=== PATIENT | male | born 1965 | race Caucasian/White ===

== ENCOUNTER 2022-06-07 18:52 | Inpatient (IN) | payer OTHER ==
[2022-06-07 18:59] VITALS: BMI 30.9
[2022-06-07] MEDS ORDERED: diazePAM CARPU-JECT 10 MG/2 ML DISP.SYRIN IVPUSH ONE ×3 (19:13→20:13)
[2022-06-07] MEDS ORDERED: SODIUM CHLORIDE 0.9% 500 ML INFUS.BAG IV ONE ×2 (19:15→20:18)
[2022-06-07] MEDS ORDERED: PANTOPRAZOLE SODIUM 40 MG VIAL IVPUSH ONE (19:18)
[2022-06-07] MEDS ORDERED: PANTOPRAZOLE SODIUM 40 MG VIAL ONE (19:28)
[2022-06-07] MEDS ORDERED: diazePAM CARPU-JECT 10 MG/2 ML DISP.SYRIN ONE ×3 (19:28→20:17)
[2022-06-07 19:54] LABS: BASO % 0.3 % (0-2.0); EOS % 0.2 % (0-4.5); HEMATOCRIT 39.8 % (35.4-49); HEMOGLOBIN 14.1 GM/dL (11.7-16.9); LYMPH % 21.1 % (8-40); MCH 30.4 pg (25.7-33.7); MCHC 35.4 g/dl (32.0-35.9); MEAN CELL VOLUME 85.8 fl (80-96); MEAN PLT VOLUME 7.3 fl (7.5-11.1); MONO % 9.7 % (3.8-10.2); NEUT % 68.7 % (42.8-82.8); PLATELET COUNT 134 10^3/uL (134-434); RBC 4.64 M/mm3 (4.00-5.60); RDW 14.3 % (11.9-15.9); WHITE BLOOD COUNT 9.4 K/mm3 (4.0-10.0)
[2022-06-07 20:08] LABS: INR 1.09 (0.83-1.09); PROTHROMBIN TIME (PATIENT) 12.6 SEC (9.7-13.0)
[2022-06-07] MEDS ORDERED: FOLIC ACID 1 MG TABLET (FP) PO ONE (20:14)
[2022-06-07] MEDS ORDERED: MULTIVITAMINS (DAILY MVI) TABLET (FP) PO ONE (20:14)
[2022-06-07] MEDS ORDERED: ACETAMINOPHEN 1000 MG/100 ML BAG IVPB ONE (20:14)
[2022-06-07] MEDS ORDERED: THIAMINE HCL 100 MG TABLET (FP) PO ONE (20:14)
[2022-06-07 20:26] LABS: CHLORIDE 91 mmol/L (98-107); SODIUM 134 mmol/L (136-145)
[2022-06-07 20:27] LABS: CALCIUM 8.3 mg/dL (8.5-10.1)
[2022-06-07 20:29] LABS: BLOOD UREA NITROGEN 9.3 mg/dL (7-18); CO2 23 mmol/L (21-32); GLUCOSE,RANDOM 121 mg/dL (74-106)
[2022-06-07 20:30] LABS: LIPASE 389 U/L (73-393)
[2022-06-07 20:32] LABS: CREATININE 0.8 mg/dL (0.55-1.3); SGOT/AST 112 U/L (15-37); SGPT/ALT 97 U/L (13-61)
[2022-06-07 20:33] LABS: BILIRUBIN,TOTAL 1.9 mg/dL (0.2-1); TOT PROT 7.9 g/dl (6.4-8.2)
[2022-06-07 20:35] LABS: ALK PHOS 131 U/L (45-117)
[2022-06-07 20:46] LABS: ANION GAP 20 MMOL/L (8-16); MAGNESIUM 1.4 mg/dL (1.8-2.4)
[2022-06-07] MEDS ORDERED: POTASSIUM CHLORIDE TABS 20 MEQ TABLET.ER (FP) PO ONE ×2 (20:51→21:23)
[2022-06-07] MEDS ORDERED: THIAMINE HCL 100 MG TABLET (FP) ONE (21:23)
[2022-06-07] MEDS ORDERED: MAGNESIUM SULFATE IN WATER 2 GM/50 ML IVPB IVPB ONE (21:24)
[2022-06-07] MEDS ORDERED: FOLIC ACID 1 MG TABLET (FP) ONE (21:24)
[2022-06-07] MEDS ORDERED: MULTIVITAMINS (DAILY MVI) TABLET (FP) ONE (21:24)
[2022-06-07] MEDS ORDERED: FOLIC ACID INJECTION - 1 MG, THIAMINE HCL 100 MG, MULTIVIT INJECTION ADULT 10 ML in SOD... IVPB ONE (22:30)
[2022-06-07] MEDS ORDERED: KCL 10 MEQ IVPB 10 MEQ/100 ML INFUS.BAG IVPB ONE (22:34)
[2022-06-07 22:39] LABS: GAMMA GLUTAMYL TRANSPEPTIDASE 175 U/L (5-85)
[2022-06-07 22:42] LABS: BILIRUBIN,DIRECT 0.5 mg/dL (0.0-0.2)
[2022-06-07] MEDS ORDERED: LORazepam 1 MG TABLET PO PRN (22:44)
[2022-06-07] MEDS: KCL 10 MEQ IVPB 10 MEQ/100 ML INFUS.BAG IVPB SCH ×2 (22:44→23:45)
[2022-06-07] MEDS ORDERED: LORazepam 2 MG/ML SDV VIAL IVPUSH ONE (22:44)
[2022-06-07 23:14] LABS: URINE APPEARANCE CLEAR; URINE BILIRUBIN NEGATIVE (NEGATIVE); URINE COLOR YELLOW; URINE GLUCOSE (UA) NEGATIVE (NEGATIVE); URINE KETONE 2+ (NEGATIVE); URINE LEUK ESTERASE NEGATIVE (NEGATIVE); URINE NITRITE NEGATIVE (NEGATIVE); URINE PROTEIN TRACE (NEGATIVE)
[2022-06-07 23:31] LABS: URINE BENZODIAZEPINES NEGATIVE (NEGATIVE)
[2022-06-07 23:32] LABS: OPIATES, URI NEGATIVE (NEGATIVE); PHENCYCLIDINE,URINE NEGATIVE (NEGATIVE); URINE BARBITURATES NEGATIVE (NEGATIVE)
[2022-06-07 23:38] LABS: CHLORIDE 98 mmol/L (98-107); SODIUM 134 mmol/L (136-145)
[2022-06-07 23:39] LABS: CALCIUM 7.5 mg/dL (8.5-10.1)
[2022-06-07 23:40] LABS: BLOOD UREA NITROGEN 8.3 mg/dL (7-18); CO2 28 mmol/L (21-32); GLUCOSE,RANDOM 107 mg/dL (74-106); MAGNESIUM 2.3 mg/dL (1.8-2.4)
[2022-06-07 23:43] LABS: CREATININE 0.7 mg/dL (0.55-1.3)
[2022-06-07] MEDS: LORazepam 1 MG TABLET PO SCH (23:45)
[2022-06-07 23:51] LABS: ANION GAP 7 MMOL/L (8-16); COCAINE, UR NEGATIVE (NEGATIVE); METHADONE, UR NEGATIVE (NEGATIVE); URINE AMPHETAMINES NEGATIVE (NEGATIVE)
[2022-06-08] MEDS ORDERED: POTASSIUM PHOSPHATE 30 MM in DEXTROSE 5%-WATER - 500 ML IVPB ONE (00:27)
[2022-06-08] MEDS ORDERED: TRIMETHOBENZAMIDE HCL 200MG/2ML INJ IM PRN (00:56)
[2022-06-08] MEDS: KCL 10 MEQ IVPB 10 MEQ/100 ML INFUS.BAG IVPB SCH ×4 (01:28→05:18)
[2022-06-08] MEDS ORDERED: CALCIUM GLUC IN NACL, ISO-OSM 1 GM/50 ML BAG IVPB ONE (01:29)
[2022-06-08] MEDS: LORazepam 1 MG TABLET PO SCH ×4 (05:18→22:21)
[2022-06-08 08:32] LABS: BASO % 0.3 % (0-2.0); EOS % 1.6 % (0-4.5); HEMATOCRIT 34.9 % (35.4-49); HEMOGLOBIN 12.1 GM/dL (11.7-16.9); LYMPH % 16.4 % (8-40); MCH 30.3 pg (25.7-33.7); MCHC 34.7 g/dl (32.0-35.9); MEAN CELL VOLUME 87.5 fl (80-96); MEAN PLT VOLUME 7.6 fl (7.5-11.1); MONO % 7.4 % (3.8-10.2); NEUT % 74.3 % (42.8-82.8); PLATELET COUNT 108 10^3/uL (134-434); RBC 3.99 M/mm3 (4.00-5.60); RDW 14.3 % (11.9-15.9); WHITE BLOOD COUNT 6.6 K/mm3 (4.0-10.0)
[2022-06-08] MEDS ORDERED: cloNIDine HCL 0.1 MG TABLET PO ONE (08:50)
[2022-06-08 08:57] LABS: BILIRUBIN,TOTAL 1.9 mg/dL (0.2-1); CALCIUM 7.7 mg/dL (8.5-10.1); TOT PROT 6.3 g/dl (6.4-8.2)
[2022-06-08 08:58] LABS: BLOOD UREA NITROGEN 7.4 mg/dL (7-18); CREATININE 0.7 mg/dL (0.55-1.3); MAGNESIUM 2.2 mg/dL (1.8-2.4)
[2022-06-08 09:58] LABS: ALBUMIN 3.2 g/dl (3.4-5.0)
[2022-06-08] MEDS: PANTOPRAZOLE 40 MG TABLET PO SCH ×2 (10:20→22:21)
[2022-06-08] MEDS: FOLIC ACID 1 MG TABLET (FP) PO SCH (10:20)
[2022-06-08] MEDS: LEVOTHYROXINE NA 75 MCG TABLET (FP) PO SCH (10:20)
[2022-06-08] MEDS: THIAMINE HCL 100 MG TABLET (FP) PO SCH (10:20)
[2022-06-08] MEDS ORDERED: LORazepam 2 MG TABLET PO PRN (10:26)
[2022-06-08] MEDS ORDERED: LORazepam 1 MG TABLET PO PRN (10:32)
[2022-06-08] MEDS: SODIUM CHLORIDE 1,000 ML IV SCH (11:17)
[2022-06-08] MEDS: MULTIVITAMINS (DAILY MVI) TABLET (FP) PO SCH (13:11)
[2022-06-08] MEDS: FAMOTIDINE 20 MG TABLET PO SCH (13:11)
[2022-06-08] MEDS: METOPROLOL TARTRATE 25 MG TABLET (FP) PO SCH ×2 (13:11→22:20)
[2022-06-08 18:50] LABS: URINE APPEARANCE TURBID; URINE BILIRUBIN NEGATIVE (NEGATIVE); URINE COLOR YELLOW; URINE GLUCOSE (UA) NEGATIVE (NEGATIVE); URINE KETONE NEGATIVE (NEGATIVE); URINE LEUK ESTERASE NEGATIVE (NEGATIVE); URINE NITRITE NEGATIVE (NEGATIVE); URINE PROTEIN TRACE (NEGATIVE)
[2022-06-09] MEDS: LORazepam 1 MG TABLET PO SCH ×4 (05:38→22:04)
[2022-06-09] MEDS: LEVOTHYROXINE NA 75 MCG TABLET (FP) PO SCH (10:32)
[2022-06-09] MEDS: FAMOTIDINE 20 MG TABLET PO SCH (10:32)
[2022-06-09] MEDS: FOLIC ACID 1 MG TABLET (FP) PO SCH (10:32)
[2022-06-09] MEDS: METOPROLOL TARTRATE 25 MG TABLET (FP) PO SCH ×2 (10:32→22:04)
[2022-06-09] MEDS: PANTOPRAZOLE 40 MG TABLET PO SCH ×2 (10:32→22:04)
[2022-06-09] MEDS: MULTIVITAMINS (DAILY MVI) TABLET (FP) PO SCH (10:32)
[2022-06-09] MEDS: THIAMINE HCL 100 MG TABLET (FP) PO SCH (10:32)
[2022-06-09] MEDS: SODIUM CHLORIDE 1,000 ML IV SCH (10:33)
[2022-06-09 17:06] LABS: CALCIUM 8.6 mg/dL (8.5-10.1)
[2022-06-09 17:06] LABS: BLOOD UREA NITROGEN 10.9 mg/dL (7-18); CALCIUM 8.4 mg/dL (8.5-10.1); MAGNESIUM 1.8 mg/dL (1.8-2.4)
[2022-06-09 17:10] LABS: CREATININE 0.9 mg/dL (0.55-1.3)
[2022-06-09 17:11] LABS: CREATININE 0.8 mg/dL (0.55-1.3)
[2022-06-09] MEDS: KCL 10 MEQ IVPB 10 MEQ/100 ML INFUS.BAG IVPB SCH ×3 (19:38→22:05)
[2022-06-10] MEDS ORDERED: LORazepam 0.5 MG TABLET PO PRN
[2022-06-10] MEDS: LORazepam 0.5 MG TABLET PO SCH ×4 (04:48→22:10)
[2022-06-10 07:16] LABS: HEMATOCRIT 34.4 % (35.4-49); HEMOGLOBIN 11.9 GM/dL (11.7-16.9); MCH 30.8 pg (25.7-33.7); MCHC 34.6 g/dl (32.0-35.9); MEAN CELL VOLUME 88.8 fl (80-96); MEAN PLT VOLUME 7.7 fl (7.5-11.1); PLATELET COUNT 123 10^3/uL (134-434); RBC 3.88 M/mm3 (4.00-5.60); RDW 14.8 % (11.9-15.9); WHITE BLOOD COUNT 7.2 K/mm3 (4.0-10.0)
[2022-06-10 09:26] LABS: ALBUMIN 3.2 g/dl (3.4-5.0); BLOOD UREA NITROGEN 11.8 mg/dL (7-18); CALCIUM 8.4 mg/dL (8.5-10.1)
[2022-06-10 09:28] LABS: MAGNESIUM 1.9 mg/dL (1.8-2.4)
[2022-06-10 09:31] LABS: CREATININE 0.7 mg/dL (0.55-1.3); PHOSPHOROUS 4.2 mg/dL (2.5-4.9)
[2022-06-10 09:32] LABS: TOT PROT 6.4 g/dl (6.4-8.2)
[2022-06-10] MEDS: THIAMINE HCL 100 MG TABLET (FP) PO SCH (09:32)
[2022-06-10] MEDS: MULTIVITAMINS (DAILY MVI) TABLET (FP) PO SCH (09:32)
[2022-06-10] MEDS: FOLIC ACID 1 MG TABLET (FP) PO SCH (09:32)
[2022-06-10] MEDS: LEVOTHYROXINE NA 75 MCG TABLET (FP) PO SCH (09:32)
[2022-06-10 09:33] LABS: BILIRUBIN,TOTAL 0.7 mg/dL (0.2-1)
[2022-06-10] MEDS: FAMOTIDINE 20 MG TABLET PO SCH (09:33)
[2022-06-10] MEDS: PANTOPRAZOLE 40 MG TABLET PO SCH ×2 (09:33→22:10)
[2022-06-10] MEDS: METOPROLOL TARTRATE 25 MG TABLET (FP) PO SCH ×2 (09:33→22:10)
[2022-06-10] MEDS ORDERED: POTASSIUM CHLORIDE TABS 20 MEQ TABLET.ER (FP) PO ONE (14:00)
[2022-06-11 00:43] VITALS: RESP 18
[2022-06-11] MEDS ORDERED: LORazepam 0.5 MG TABLET PO ONE (05:00)
[2022-06-11 08:43] LABS: HEMATOCRIT 35.9 % (35.4-49); HEMOGLOBIN 12.3 GM/dL (11.7-16.9); MCH 30.6 pg (25.7-33.7); MCHC 34.3 g/dl (32.0-35.9); MEAN CELL VOLUME 89.4 fl (80-96); MEAN PLT VOLUME 7.7 fl (7.5-11.1); PLATELET COUNT 147 10^3/uL (134-434); RBC 4.02 M/mm3 (4.00-5.60); RDW 14.3 % (11.9-15.9); WHITE BLOOD COUNT 7.1 K/mm3 (4.0-10.0)
[2022-06-11 09:30] LABS: BLOOD UREA NITROGEN 13.4 mg/dL (7-18); CALCIUM 8.3 mg/dL (8.5-10.1)
[2022-06-11 09:32] LABS: ALBUMIN 3.3 g/dl (3.4-5.0); MAGNESIUM 1.9 mg/dL (1.8-2.4)
[2022-06-11 09:34] LABS: CREATININE 0.8 mg/dL (0.55-1.3)
[2022-06-11 09:35] LABS: BILIRUBIN,TOTAL 0.7 mg/dL (0.2-1); TOT PROT 6.8 g/dl (6.4-8.2)
[2022-06-11 09:37] VITALS: BP 144/95; PULSE 86; TEMP 98.3
[2022-06-11] MEDS: PANTOPRAZOLE 40 MG TABLET PO SCH (09:59)
[2022-06-11] MEDS: MULTIVITAMINS (DAILY MVI) TABLET (FP) PO SCH (09:59)
[2022-06-11] MEDS: FAMOTIDINE 20 MG TABLET PO SCH (09:59)
[2022-06-11] MEDS: FOLIC ACID 1 MG TABLET (FP) PO SCH (09:59)
[2022-06-11] MEDS: METOPROLOL TARTRATE 25 MG TABLET (FP) PO SCH (09:59)
[2022-06-11] MEDS: LEVOTHYROXINE NA 75 MCG TABLET (FP) PO SCH (09:59)
[2022-06-11] MEDS: THIAMINE HCL 100 MG TABLET (FP) PO SCH (09:59)
== END 2022-06-11 13:50 | disposition home or self-care (01) | DRG 253 ==
LOC: JER 18:52 → JERBED 21:02 → J4S 23:29
PROVIDERS: ADMIT Internal Medicine; ATTEND Internal Medicine
DX: K92.0 Hematemesis (principal); F10.239 Alcohol dependence with withdrawal, unspecified; I24.8 Other forms of acute ischemic heart disease; R45.851 Suicidal ideations; E03.9 Hypothyroidism, unspecified; I10 Essential (primary) hypertension; E87.6 Hypokalemia; R74.01 Elevation of levels of liver transaminase levels
CPT/HCPCS: 0241U-QW; 36415; 71045-TC-FY; 76705-TC; 80048; 80053; 80307; 81003; 82248; 82550; 82553; 82746; 82977; 83036; 83605; 83690; 83735; 84100; 84153; 84439; 84443; 84484; 85025; 85027; 85610; 86704; 86803; 86850; 86900; 86901; 87340; 87517; 93005; 93010; 93306-TC; 99285-25

== ENCOUNTER 2022-12-14 04:44 | Inpatient (IN) | payer OTHER ==
[2022-12-14] MEDS ORDERED: ONDANSETRON 4 MG/2 ML VIAL IVPUSH ONE (05:21)
[2022-12-14] MEDS ORDERED: ONDANSETRON 4 MG/2 ML VIAL ONE (05:32)
[2022-12-14 06:22] LABS: BASO % 0.5 % (0-2.0); EOS % 0.8 % (0-4.5); HEMATOCRIT 41.2 % (35.4-49); HEMOGLOBIN 14.4 GM/dL (11.7-16.9); LYMPH % 21.8 % (8-40); MCH 31.1 pg (25.7-33.7); MEAN CELL VOLUME 88.8 fl (80-96); MEAN PLT VOLUME 7.8 fl (7.5-11.1); MONO % 6.7 % (3.8-10.2); NEUT % 70.2 % (42.8-82.8); PLATELET COUNT 201 10^3/uL (134-434); RBC 4.64 M/mm3 (4.00-5.60); RDW 13.7 % (11.9-15.9)
[2022-12-14 06:23] LABS: EPI CELLS 8 /uL (0-25.1); HYALINE CASTS 1 /uL (0-3.1); URINE APPEARANCE CLOUDY; URINE BACTERIA 12 /uL (0-1359); URINE BILIRUBIN NEGATIVE (NEGATIVE); URINE COLOR YELLOW; URINE GLUCOSE (UA) NEGATIVE (NEGATIVE); URINE KETONE TRACE (NEGATIVE); URINE LEUK ESTERASE NEGATIVE (NEGATIVE); URINE NITRITE NEGATIVE (NEGATIVE); URINE PROTEIN 1+ (NEGATIVE); URINE RBC 19 /uL (0-23.9); URINE WBC 6 /uL (0-25.8)
[2022-12-14 06:27] LABS: COCAINE, UR NEGATIVE (NEGATIVE); VENOUS BASE EXCESS 1.8 mmol/L (-2-2); VENOUS O2 SATURATION 95.8 % (70-80); VENOUS PCO2 35.3 mmHg (38-52); VENOUS PH 7.469 (7.310-7.410)
[2022-12-14 06:28] LABS: INR 1.12 (0.83-1.09); OPIATES, URI NEGATIVE (NEGATIVE); PHENCYCLIDINE,URINE NEGATIVE (NEGATIVE); URINE BARBITURATES NEGATIVE (NEGATIVE)
[2022-12-14 06:29] LABS: URINE AMPHETAMINES NEGATIVE (NEGATIVE)
[2022-12-14 06:31] LABS: METHADONE, UR NEGATIVE (NEGATIVE); URINE BENZODIAZEPINES NEGATIVE (NEGATIVE)
[2022-12-14 06:39] LABS: POTASSIUM 3.1 mmol/L (3.5-5.1)
[2022-12-14 06:42] LABS: ALBUMIN 3.7 g/dl (3.4-5.0); BLOOD UREA NITROGEN 13.8 mg/dL (7-18); CALCIUM 7.9 mg/dL (8.5-10.1)
[2022-12-14 06:43] LABS: MAGNESIUM 1.8 mg/dL (1.8-2.4)
[2022-12-14 06:45] LABS: CREATININE 0.8 mg/dL (0.55-1.3)
[2022-12-14 06:47] LABS: BILIRUBIN,TOTAL 1.4 mg/dL (0.2-1); TOT PROT 7.5 g/dl (6.4-8.2)
[2022-12-14] MEDS ORDERED: chlordiazePOXIDE HCL 25 MG CAPSULE PO ONE (06:50)
[2022-12-14] MEDS ORDERED: diazePAM 5 MG TABLET PO ONE ×2 (08:28→11:41)
[2022-12-14] MEDS ORDERED: ACETAMINOPHEN 325 MG TABLET (FP) PO ONE (10:36)
[2022-12-14] MEDS ORDERED: chlordiazePOXIDE HCL 25 MG CAPSULE ONE ×3 (11:03→20:40)
[2022-12-14] MEDS: FOLIC ACID INJECTION - 1 MG, THIAMINE HCL 100 MG, MULTIVIT INJECTION ADULT 10 ML in SOD... IVPB ONE ×2 (11:17→11:30)
[2022-12-14] MEDS ORDERED: diazePAM 5 MG TABLET ONE (11:48)
[2022-12-14] MEDS ORDERED: amLODIPine BESYLATE 5 MG TABLET (FP) PO ONE (12:14)
[2022-12-14] MEDS ORDERED: amLODIPine BESYLATE 5 MG TABLET (FP) ONE (12:26)
[2022-12-14] MEDS ORDERED: diazePAM CARPU-JECT 10 MG/2 ML DISP.SYRIN IVPUSH ONE (12:42)
[2022-12-14] MEDS ORDERED: SODIUM CHLORIDE 0.9% 1000 ML INFUS.BAG IV ONE (12:43)
[2022-12-14] MEDS ORDERED: diazePAM CARPU-JECT 10 MG/2 ML DISP.SYRIN ONE (13:10)
[2022-12-14] MEDS ORDERED: hydrALAZINE HCL 20 MG/ML VIAL IVPUSH PRN (14:54)
[2022-12-14] MEDS ORDERED: TRIMETHOBENZAMIDE HCL 200MG/2ML INJ IM PRN (14:59)
[2022-12-14] MEDS ORDERED: chlordiazePOXIDE HCL 25 MG CAPSULE PO PRN (15:02)
[2022-12-14] MEDS ORDERED: PANTOPRAZOLE SODIUM 40 MG/100 ML BAG IVPB ONE (16:47)
[2022-12-14] MEDS: chlordiazePOXIDE HCL 25 MG CAPSULE PO SCH ×2 (16:55→22:06)
[2022-12-14] MEDS: PANTOPRAZOLE SODIUM 40 MG VIAL IVPUSH SCH ×2 (16:55→21:03)
[2022-12-14] MEDS ORDERED: ONDANSETRON *ODT* 4 MG TABLET SL PRN (17:07)
[2022-12-14] MEDS ORDERED: DICYCLOMINE HCL 10 MG CAPSULE PO PRN (17:07)
[2022-12-14] MEDS ORDERED: guaiFENesin 600 MG TABLET.ER (FP) PO PRN (17:07)
[2022-12-14] MEDS ORDERED: METHOCARBAMOL 500 MG TABLET PO PRN (17:07)
[2022-12-14] MEDS ORDERED: BENZOCAINE/MENTHOL (CHLORASEPTIC ) LOZENGE MM PRN (17:07)
[2022-12-14] MEDS ORDERED: MAGNESIUM HYDROX 2400MG/30ML ORAL SUSPENSION 30 ML CUP PO PRN (17:07)
[2022-12-14] MEDS ORDERED: MAG HYDROX/AL HYDROX/SIMETH 30 ML UNIT-DOSE CUP PO PRN (17:07)
[2022-12-14] MEDS ORDERED: BISMUTH SUBSALICYLATE 524 MG/30 ML PO PRN (17:07)
[2022-12-14] MEDS ORDERED: POLYETHYLENE GLYCOL (HEALTHYLAX) 3350 17 GM PACKET PO PRN (17:07)
[2022-12-14] MEDS ORDERED: BENZONATATE 200 MG CAPSULE PO PRN (17:07)
[2022-12-14 18:18] LABS: HEMATOCRIT 40.5 % (35.4-49); HEMOGLOBIN 13.9 GM/dL (11.7-16.9); MCH 30.4 pg (25.7-33.7); MCHC 34.2 g/dl (32.0-35.9); MEAN CELL VOLUME 88.9 fl (80-96); MEAN PLT VOLUME 7.9 fl (7.5-11.1); PLATELET COUNT 197 10^3/uL (134-434); RBC 4.55 M/mm3 (4.00-5.60); RDW 13.5 % (11.9-15.9)
[2022-12-14] MEDS: PRENATAL VITAMINS W/ FOLIC ACID TABLET (FP) PO SCH (18:55)
[2022-12-14] MEDS ORDERED: KCL 10 MEQ IVPB 10 MEQ/100 ML INFUS.BAG IVPB ONE ×3 (18:57→22:48)
[2022-12-14] MEDS: KCL 10 MEQ IVPB 10 MEQ/100 ML INFUS.BAG IVPB SCH ×3 (19:09→22:51)
[2022-12-14] MEDS ORDERED: PANTOPRAZOLE SODIUM 40 MG VIAL ONE (20:39)
[2022-12-14] MEDS ORDERED: MELATONIN 5 MG TABLETS ONE (20:39)
[2022-12-14] MEDS ORDERED: THIAMINE HCL 100 MG TABLET (FP) ONE (20:40)
[2022-12-14] MEDS: MELATONIN 5 MG TABLETS PO SCH (21:02)
[2022-12-14] MEDS: THIAMINE HCL 100 MG TABLET (FP) PO SCH (21:04)
[2022-12-14] MEDS ORDERED: hydrALAZINE HCL 20 MG/ML VIAL ONE (21:10)
[2022-12-14] MEDS: hydrALAZINE HCL 20 MG/ML VIAL IVPUSH PRN (21:12)
[2022-12-14] MEDS: LACTATED RINGERS SOLUTION 1,000 ML/1,000 ML INFUS.BAG IV SCH (23:50)
[2022-12-15 01:00] LABS: HEMATOCRIT 38.1 % (35.4-49); HEMOGLOBIN 13.5 GM/dL (11.7-16.9); MCH 31.1 pg (25.7-33.7); MCHC 35.3 g/dl (32.0-35.9); MEAN CELL VOLUME 88.1 fl (80-96); MEAN PLT VOLUME 7.5 fl (7.5-11.1); PLATELET COUNT 158 10^3/uL (134-434); RBC 4.33 M/mm3 (4.00-5.60); RDW 13.7 % (11.9-15.9); WHITE BLOOD COUNT 8.4 K/mm3 (4.0-10.0)
[2022-12-15 03:37] VITALS: BMI 76.4
[2022-12-15] MEDS: chlordiazePOXIDE HCL 25 MG CAPSULE PO SCH ×4 (05:33→22:14)
[2022-12-15] MEDS: LEVOTHYROXINE NA 75 MCG TABLET (FP) PO SCH (05:37)
[2022-12-15] MEDS: hydrALAZINE HCL 20 MG/ML VIAL IVPUSH PRN (07:33)
[2022-12-15 09:05] LABS: BASO % 0.3 % (0-2.0); EOS % 1.3 % (0-4.5); HEMATOCRIT 38.9 % (35.4-49); HEMOGLOBIN 13.8 GM/dL (11.7-16.9); LYMPH % 17.1 % (8-40); MCH 31.1 pg (25.7-33.7); MCHC 35.5 g/dl (32.0-35.9); MEAN CELL VOLUME 87.7 fl (80-96); MEAN PLT VOLUME 7.9 fl (7.5-11.1); MONO % 5.7 % (3.8-10.2); NEUT % 75.6 % (42.8-82.8); PLATELET COUNT 167 10^3/uL (134-434); RBC 4.43 M/mm3 (4.00-5.60); RDW 13.9 % (11.9-15.9); WHITE BLOOD COUNT 9.5 K/mm3 (4.0-10.0)
[2022-12-15 09:13] LABS: POTASSIUM 3.1 mmol/L (3.5-5.1)
[2022-12-15 09:14] LABS: ALBUMIN 3.4 g/dl (3.4-5.0); BLOOD UREA NITROGEN 9.9 mg/dL (7-18); CALCIUM 8.2 mg/dL (8.5-10.1); MAGNESIUM 1.6 mg/dL (1.8-2.4)
[2022-12-15 09:18] LABS: CREATININE 0.8 mg/dL (0.55-1.3)
[2022-12-15 09:19] LABS: BILIRUBIN,TOTAL 2.1 mg/dL (0.2-1)
[2022-12-15] MEDS: PANTOPRAZOLE SODIUM 40 MG VIAL IVPUSH SCH ×2 (09:31→21:14)
[2022-12-15] MEDS: PRENATAL VITAMINS W/ FOLIC ACID TABLET (FP) PO SCH (09:48)
[2022-12-15] MEDS ORDERED: ENOXAPARIN NA (PORCINE) 40 MG/0.4 ML DISP.SYRIN SQ SCH (10:00)
[2022-12-15] MEDS ORDERED: MAGNESIUM SULF 50% (8.12 MEQ/2 ML-1 GM VIAL) IVPB ONE (10:50)
[2022-12-15] MEDS ORDERED: PEG 3350/NA SULF BICARB CL/KCL 4000 ML SOLN.RECON PO ONE (13:00)
[2022-12-15] MEDS ORDERED: POTASSIUM CHLORIDE TABS 20 MEQ TABLET.ER (FP) PO ONE (13:45)
[2022-12-15] MEDS: LACTATED RINGERS SOLUTION 1,000 ML/1,000 ML INFUS.BAG IV SCH (17:16)
[2022-12-15] MEDS ORDERED: BISACODYL 5 MG TABLET.DR (FP) PO ONE (20:00)
[2022-12-15] MEDS: THIAMINE HCL 100 MG TABLET (FP) PO SCH (21:14)
[2022-12-15] MEDS: MELATONIN 5 MG TABLETS PO SCH (22:14)
[2022-12-16] MEDS: chlordiazePOXIDE HCL 25 MG CAPSULE PO SCH ×4 (06:01→22:57)
[2022-12-16] MEDS: LEVOTHYROXINE NA 75 MCG TABLET (FP) PO SCH (06:01)
[2022-12-16] MEDS: LACTATED RINGERS SOLUTION 1,000 ML/1,000 ML INFUS.BAG IV SCH (08:27)
[2022-12-16] MEDS: KCL 10 MEQ IVPB 10 MEQ/100 ML INFUS.BAG IVPB SCH ×3 (08:58→13:57)
[2022-12-16 09:59] LABS: BASO % 0.2 % (0-2.0); EOS % 2.3 % (0-4.5); HEMATOCRIT 35.6 % (35.4-49); HEMOGLOBIN 12.6 GM/dL (11.7-16.9); MCH 31.2 pg (25.7-33.7); MCHC 35.4 g/dl (32.0-35.9); MEAN CELL VOLUME 88.1 fl (80-96); MEAN PLT VOLUME 7.5 fl (7.5-11.1); NEUT % 72.5 % (42.8-82.8); PLATELET COUNT 137 10^3/uL (134-434); RBC 4.04 M/mm3 (4.00-5.60); RDW 13.5 % (11.9-15.9); WHITE BLOOD COUNT 7.5 K/mm3 (4.0-10.0)
[2022-12-16 10:05] LABS: PROTHROMBIN TIME (PATIENT) 11.6 SEC (9.7-13.0)
[2022-12-16] MEDS: PANTOPRAZOLE SODIUM 40 MG VIAL IVPUSH SCH (10:06)
[2022-12-16] MEDS: PRENATAL VITAMINS W/ FOLIC ACID TABLET (FP) PO SCH (10:06)
[2022-12-16 10:47] LABS: POTASSIUM 3.1 mmol/L (3.5-5.1)
[2022-12-16 10:50] LABS: ALBUMIN 3.2 g/dl (3.4-5.0); BLOOD UREA NITROGEN 6.7 mg/dL (7-18)
[2022-12-16 10:53] LABS: CREATININE 0.7 mg/dL (0.55-1.3); PHOSPHOROUS 3.6 mg/dL (2.5-4.9)
[2022-12-16 10:54] LABS: BILIRUBIN,TOTAL 1.2 mg/dL (0.2-1); TOT PROT 6.4 g/dl (6.4-8.2)
[2022-12-16] MEDS ORDERED: POTASSIUM CHLORIDE ORAL LIQUID 20 MEQ/15 ML PO ONE (13:18)
[2022-12-16] MEDS ORDERED: POTASSIUM CHLORIDE TABS 10 MEQ TABLET.ER (FP) PO ONE (13:18)
[2022-12-16] MEDS: THIAMINE HCL 100 MG TABLET (FP) PO SCH (22:53)
[2022-12-16] MEDS: MELATONIN 5 MG TABLETS PO SCH (22:53)
[2022-12-17] MEDS ORDERED: chlordiazePOXIDE HCL 10 MG CAPSULE PO PRN
[2022-12-17 01:24] VITALS: TEMP 97.8
[2022-12-17] MEDS: LEVOTHYROXINE NA 75 MCG TABLET (FP) PO SCH (05:46)
[2022-12-17] MEDS: chlordiazePOXIDE HCL 10 MG CAPSULE PO SCH ×2 (05:47→11:22)
[2022-12-17 07:05] VITALS: RESP 16
[2022-12-17 07:20] LABS: HEMATOCRIT 36.1 % (35.4-49); HEMOGLOBIN 12.1 GM/dL (11.7-16.9); MCH 30.9 pg (25.7-33.7); MCHC 33.7 g/dl (32.0-35.9); MEAN CELL VOLUME 91.6 fl (80-96); MEAN PLT VOLUME 7.7 fl (7.5-11.1); PLATELET COUNT 134 10^3/uL (134-434); RBC 3.94 M/mm3 (4.00-5.60); RDW 13.7 % (11.9-15.9); WHITE BLOOD COUNT 6.2 K/mm3 (4.0-10.0)
[2022-12-17 07:44] LABS: POTASSIUM 3.3 mmol/L (3.5-5.1)
[2022-12-17 07:50] LABS: ALBUMIN 3.2 g/dl (3.4-5.0); BLOOD UREA NITROGEN 9.3 mg/dL (7-18); CALCIUM 8.1 mg/dL (8.5-10.1); MAGNESIUM 1.7 mg/dL (1.8-2.4)
[2022-12-17 07:53] LABS: CREATININE 0.7 mg/dL (0.55-1.3); PHOSPHOROUS 3.8 mg/dL (2.5-4.9)
[2022-12-17 07:55] LABS: TOT PROT 6.6 g/dl (6.4-8.2)
[2022-12-17 09:22] VITALS: BP 151/99; PULSE 78
[2022-12-17] MEDS: PRENATAL VITAMINS W/ FOLIC ACID TABLET (FP) PO SCH (09:22)
[2022-12-17] MEDS ORDERED: amLODIPine BESYLATE 5 MG TABLET (FP) PO ONE (09:30)
[2022-12-17] MEDS ORDERED: PANTOPRAZOLE 40 MG TABLET PO SCH (10:00)
[2022-12-18] MEDS ORDERED: chlordiazePOXIDE HCL 10 MG CAPSULE PO SCH (05:00)
[2022-12-18 23:11] LABS: ALPHA 2 MACROGLOBULINS,QN 198 mg/dL (110-276); ALT(SGPT)P5P 57 IU/L (0-55); APOLIPOPROTEIN A-1. 69 mg/dL (101-178); CHOLESTEROL TOTAL 124 mg/dL (100-199); FIBROSIS SCORE- 0.54 (0.00-0.21); GLUCOSE SERUM 94 mg/dL (70-99); HEIGHT. 63 in (.); WEIGHT. 431 LBS (.)
[2022-12-19] MEDS ORDERED: chlordiazePOXIDE HCL 10 MG CAPSULE PO ONE (05:00)
== END 2022-12-17 14:12 | disposition left against medical advice (07) | DRG 241 ==
LOC: JER 04:44 → JERBED 05:58 → UNDOADMOB 05:58 → INTOOBSV 05:58 → JERBED 05:59 → J4S 12-15 03:14 → OBSVTOIN 12-16 15:38
PROVIDERS: ADMIT Internal Medicine; ATTEND Internal Medicine
PROC: 0DBK8ZX Excision of Ascending Colon, Via Natural or Artificial Opening Endoscopic, Diagnostic (ICD-10-PCS; 2022-12-16)
PROC: 0DBN8ZX Excision of Sigmoid Colon, Via Natural or Artificial Opening Endoscopic, Diagnostic (ICD-10-PCS; 2022-12-16)
PROC: HZ2ZZZZ Detoxification Services for Substance Abuse Treatment (ICD-10-PCS; 2022-12-16)
PROC: 0DB68ZX Excision of Stomach, Via Natural or Artificial Opening Endoscopic, Diagnostic (ICD-10-PCS; principal; 2022-12-16 12:00)
DX: K29.60 Other gastritis without bleeding (principal); F10.930 Alcohol use, unspecified with withdrawal, uncomplicated; E03.9 Hypothyroidism, unspecified; R30.0 Dysuria; N48.89 Other specified disorders of penis; K92.0 Hematemesis; E87.6 Hypokalemia; I10 Essential (primary) hypertension; I16.0 Hypertensive urgency; K52.9 Noninfective gastroenteritis and colitis, unspecified; K70.9 Alcoholic liver disease, unspecified; K76.9 Liver disease, unspecified; K76.0 Fatty (change of) liver, not elsewhere classified; R94.31 Abnormal electrocardiogram [ECG] [EKG]; K42.9 Umbilical hernia without obstruction or gangrene; K20.80 Other esophagitis without bleeding
CPT/HCPCS: 36415; 71045-TC-FY; 74177-TC; 80053; 80307; 81003; 82550; 82553; 82728; 82803; 82962; 83516; 83540; 83550; 83690; 83735; 84100; 84443; 84484; 85025; 85027; 85610; 85730; 86038; 87086; 93005; 93010; 99291; G0378; Q9967